=== PATIENT | female | born 1970 | race Caucasian/White ===

== ENCOUNTER 2025-06-26 12:42 | Inpatient (IN) ==
--- NOTE | 2025-06-26 13:39 | Emergency Department Note ---
Impression & Plan Complicated UTI (urinary tract infection), Flank Pain, Calculus of kidney, Hydronephrosis with urinary obstruction due to ureteral calculus ED Provider Note CHIEF COMPLAINT: Right flank pain, UTI HISTORY OF PRESENTING ILLNESS: Patient is a 54-year-old female presents to the emergency department today for complaints of right flank pain that radiates around to her groin and a known UTI. She has been being treated for UTI since Tuesday but this morning was called and had her antibiotic changed due to culture report that was completed. She was seen at [facility] for this. Today she is reporting fevers and chills with a fever of 102.4 F. She reports worsening right-sided flank pain. She does have a significant history of renal calculi with complications and sepsis. She does report some associated nausea, headache, lightheadedness. She denies any urinary retention or other significant urinary symptoms. Patient denies chest pain, sob, breathing difficulties, recent falls or trauma, vomiting, among others. REVIEW OF SYSTEMS: See HPI for pertinent positives and pertinent negatives. ALLERGIES: See below MEDICATIONS: See below PAST MEDICAL HISTORY: See below PHYSICAL EXAM: VITALS: Vitals are noted on the nurse's note and reviewed by myself. GENERAL: Non toxic, in no acute distress, non-diaphoretic. SKIN: Capillary refill <2 sec. HEART: Regular rate and rhythm without murmurs gallops or rubs. LUNGS: Clear to auscultation bilaterally without wheezes, rales or rhonchi. No retractions or accessory muscle use. ABDOMEN: Positive bowel sounds x 4. Normal tympanic percussion. Soft, tender to palpation in all 4 quadrants but worse in the right upper quadrant. No masses or hepatosplenomegaly. House sign negative. No CVA tenderness. No guarding, rigidity, or rebound tenderness. No focal RLQ or LLQ tenderness. MUSCULOSKELETAL: No gross musculoskeletal defects. NEURO: Patient was alert and oriented. No focal neurological deficits. DIFFERENTIAL DIAGNOSIS: Differential diagnosis includes UTI, bladder cancer, chlamydial genitourinary infection, cystitis, herpes simplex, interstitial cystitis, PID, pyelonephritis, urethritis, vaginitis, among others. ED COURSE AND MEDICAL DECISION MAKING: HISTORY FROM INDEPENDENT HISTORIAN: History was provided by the patient and her mother and father who are secondary historians and at the bedside. MONITOR: Continuous cardiac sonographer: Order was placed for continuous cardiac sonographer. Patient was placed on the cardiac sonographer and continuous pulse ox. Patient was noted to be in normal sinus rhythm at an initial rate of [] bpm per my interpretation. INTERPRETATION OF LABS: I interpreted the labs with full lab results as below in the lab section of this note. Laboratory results pertinent to the emergent complaint are discussed in the MDM section below. The patient was advised to follow up with their PCP and/or specialist(s) for further outpatient monitoring and management of any abnormal results. INTERPRETATION OF IMAGING: Imaging studies were interpreted by myself and read by radiology as per the imaging section of this note. The patient was advised to follow up with their PCP and/or specialist(s) for further outpatient management of any non-emergent abnormal findings. CHRONIC MEDICAL/SOCIAL CONDITIONS AFFECTING CARE: No social concerns were identified as barriers to patients care. ESCALATION OF CARE CONSIDERED: I considered admission on this patient due to elevated white blood cell count, UTI, obstructing ureteral stone CONSULTATIONS: I spoke with Hazel Avina for admission and the patient was accepted. I also spoke and consulted with Dr. Atkinson from urology who will plan to take the patient for stent tomorrow morning. He recommends the patient n.p.o. at midnight. SUMMARY: I examined the patient for complaints of right flank pain and a UTI. A physical exam and history were performed. Nursing notes, EMR, and medication list were personally reviewed. CBC showed leukocytosis with white blood cell count of 13.93. No anemia or thrombocytopenia.. CMP showed no emergent findings but a creatinine of 1.64. Troponin was 7.1. Urinalysis showed positive ketones, blood, nitrates, leukocytes, white blood cell count, red blood cell, hyaline cast, epithelial cells, bacteria. CT of the abdomen and pelvis showed an obstructing 5 mm distal right ureteral calculus resulting in moderate hydroureteronephrosis. The patient was given Toradol 30 mg and Zofran 4 mg IV with improvement in pain and nausea. The patient was also given 1 L of normal saline as well as Rocephin 1 g IV. She was then given 1 g of Tylenol with improvement in pain and discomfort. I spoke with Hazel Avina who accepted the patient for admission to the hospital. I also talked to Dr. Atkinson from urology will plan to take the patient in for stent tomorrow morning and recommends n.p.o. at midnight. Care was transferred at this time. DIAGNOSIS: UTI, obstructing right ureteral calculus, hydronephrosis TREATMENT PLAN/DISCHARGE INSTRUCTIONS: Admit to hospitalist services The chart was completed utilizing [employer] Speech voice recognition software.Grammatical errors, random word insertions, pronoun errors, and incomplete sentences are an occasional consequence of this system due to software limitations, ambient noise, and hardware issues.Any formal questions or concerns about the content, text, or information contained within the body of this dictation should be directly addressed to the physician for clarification. Past Med/Surg History Problem List Hydronephrosis with urinary obstruction due to ureteral calculus (Acute) Calculus of kidney (Acute) Flank Pain (Acute) Obstructive nephropathy Complicated UTI (urinary tract infection) (Acute) Sepsis Social History Smoking Status: Never smoker Hx Alcohol Use: Yes Alcohol type: wine and hard liquor Hx Substance Use: No Preferred Language: [place] Communication Ability: Effective Cardiac Catheterization Technician Required: No Beliefs That Will Affect Care: None Current Living Situation: Spouse Other Information That Helps Us Care for You: No Feels Safe at Home: Yes Safety Concerns: Feels Safe At This Time Assistive Devices: Glasses Allergies Allergies Allergy/AdvReac Type Severity Reaction Status Date / Time ciprofloxacin Allergy Intermediate Hives Verified 06/26/25 16:58 sulfamethoxazole Allergy Intermediate Hives Verified 06/26/25 16:58 [From Bactrim] trimethoprim [From Bactrim] Allergy Intermediate Hives Verified 06/26/25 16:58 Home Meds Home Medications Medication Instructions Recorded Confirmed buspirone 7.5 mg tablet 7.5 mg PO BID 06/26/25 06/26/25 cefpodoxime 200 mg tablet 200 mg PO BID 06/26/25 06/26/25 cholecalciferol (vitamin D3) 125 250 mcg PO DAILY 06/26/25 06/26/25 mcg (5,000 unit) tablet (Vitamin D3) metformin 1,000 mg tablet 1,000 mg PO BID 06/26/25 06/26/25 ondansetron 4 mg disintegrating 4 mg PO TID PRN NAUSEA/VOMITING 06/26/25 06/26/25 tablet rosuvastatin 5 mg tablet 5 mg PO DAILY 06/26/25 06/26/25 semaglutide 0.25 mg or 0.5 mg (2 0.5 mg subcut WK 06/26/25 06/26/25 mg/3 mL) subcutaneous pen injector (Ozempic) sertraline 100 mg tablet 100 mg PO DAILY 06/26/25 06/26/25 sertraline 50 mg tablet 50 mg PO DAILY 06/26/25 06/26/25 tamsulosin 0.4 mg capsule (Flomax) 0.4 mg PO DAILY 06/26/25 06/26/25 valsartan 160 mg tablet 160 mg PO DAILY 06/26/25 06/26/25 Results & Data (ED) Vital Signs Vital Signs - 24 hr 06/26/25 13:04 06/26/25 14:35 06/26/25 14:43 Temperature 36.3 C L Temperature Source Temporal Artery Scan Pulse Rate 113 H 104 H Pulse Rate [Apical] 96 H Pulse Rhythm [Apical] Regular Pulse Strength [Apical] Respiratory Rate 16 18 Respiratory Effort / Characteristics Respiratory Depth Normal Respiratory Pattern Blood Pressure 112/67 Blood Pressure [Left Arm] 123/75 Blood Pressure Mean 82 Blood Pressure Mean [Left Arm] 91 Blood Pressure Position [Left Arm] Pulse Oximetry 99 98 Oxygen Delivery Method Room Air Room Air Sepsis Recent Fever Within 48 Hours No Sepsis New/Unexplained Change in Mental Status N/A Sepsis Action Taken by Nursing No Action Required 06/26/25 16:00 Temperature Temperature Source Pulse Rate Pulse Rate [Apical] 94 H Pulse Rhythm [Apical] Regular Pulse Strength [Apical] Normal Respiratory Rate 20 Respiratory Effort / Characteristics Spontaneous Respiratory Depth Normal Respiratory Pattern Regular Blood Pressure Blood Pressure [Left Arm] 147/70 H Blood Pressure Mean Blood Pressure Mean [Left Arm] 95 Blood Pressure Position [Left Arm] Sitting Pulse Oximetry 96 Oxygen Delivery Method Sepsis Recent Fever Within 48 Hours Sepsis New/Unexplained Change in Mental Status Sepsis Action Taken by Nursing Laboratory Data 06/26/25 13:54 06/26/25 19:01 Lab Results 06/26/25 06/26/25 Range/Units 07:53 13:54 WBC 13.93 H (4.8-10.8) K/ul RBC 4.52 (4.20-5.40) M/uL Hgb 12.5 (12.0-16.0) g/dl Hct 38.2 (37.0-47.0) % MCV 84.5 (80.0-100.0) fL MCH 27.7 (25.0-34.0) pg MCHC 32.7 (32.0-36.0) g/dL RDW Std Deviation 40.0 (36.4-46.3) fL RDW Coeff of Lisa 13.0 (11.5-14.5) % Plt Count 191 (130-400) K/uL MPV 10.4 (9.4-12.4) fL Immature Gran % (Auto) 0.4 % Neut % (Auto) 85.5 % Lymph % (Auto) 8.5 % Teller % (Auto) 5.0 % Eos % (Auto) 0.4 % Baso % (Auto) 0.2 % Neut # (Auto) 11.90 H (1.40-6.50) K/uL Lymph # (Auto) 1.19 L (1.20-3.40) K/uL Teller # (Auto) 0.70 H (0.11-0.59) K/uL Eos # (Auto) 0.05 (0.00-0.50) K/uL Baso # (Auto) 0.03 (0.00-0.20) K/uL Immature Gran # (Auto) 0.06 (0.01-0.20) K/uL Sodium 134 L (136-145) mmol/L Potassium TNP Chloride 100 (98-107) mmol/L Carbon Dioxide 24 (21-32) mmol/L Anion Gap 10 (3-11) BUN 22 (6-23) mg/dl Creatinine 1.64 H (0.6-1.2) mg/dl Est Cr Clr Drug Dosing 31.8 ml/min eGFR 36.75 BUN/Creatinine Ratio 13.4 (10-20) Glucose 117 H (70-99(Fasting)) mg/dl Lactate 1.3 (0.4-2.0) mmol/L Calcium 9.8 (8.6-10.3) mg/dl Total Bilirubin 0.8 (0.2-1.0) mg/dl AST TNP ALT 8 (7-52) U/L Alkaline Phosphatase 67 (34-104) U/L Troponin I High Sens 7.1 (0-14) pg/ml Total Protein 7.9 (6.0-8.3) gm/dl Albumin 4.3 (3.4-5.0) gm/dl Globulin 3.6 (2.5-4.0) gm/dl Albumin/Globulin Ratio 1.2 (0.9-2) Procalcitonin Cancelled Administered Medications Buspirone HCl (Buspirone 7.5 Mg Tab) 7.5 mg PO BID [facility] Stop: 07/26/25 20:59 Last Admin: 06/26/25 20:33 Dose: 7.5 mg Documented By: jr Sodium Chloride (Nss) 1,000 mls @ 125 mls/hr IV .Q8H SOFIA Stop: 06/27/25 02:59 Last Admin: 06/26/25 19:21 Dose: 125 mls/hr Documented By: RT Cefepime HCl (Maxipime 2000mg) 2,000 mg in 20 mls @ 5 mls/min IV Q12H SOFIA; Protocol Stop: 07/06/25 19:29 Last Admin: 06/26/25 20:33 Dose: 5 mls/min Documented By: [email or web address] Insulin Aspart (Insulin Aspart Per Unit Charge) 0 units SC ACHS SOFIA Stop: 06/26/25 23:59 Last Admin: 06/26/25 20:40 Dose: Not Given Documented By: [email or web address] Morphine Sulfate (Morphine Sulfate 2 Mg/Ml Carp) 4 mg IV Q4H PRN PRN Reason: Mod-Sev Pain (Scale 4-10) Stop: 07/10/25 18:20 Last Admin: 06/26/25 20:41 Dose: 4 mg Documented By: jr Discontinued Medications Ceftriaxone Sodium (Rocephin) 1,000 mg in 50 mls @ 100 mls/hr IV NOW STA; Protocol Stop: 06/26/25 13:52 Last Infusion: 06/26/25 17:37 Dose: Infused Documented By: Admin: 06/26/25 15:20 Dose: 100 mls/hr Documented By: Sodium Chloride (Nss) 1,000 mls @ 999 mls/hr IV .Q1H1M ONE Stop: 06/26/25 14:26 Last Infusion: 06/26/25 17:37 Dose: Infused Documented By: Admin: 06/26/25 14:20 Dose: 999 mls/hr Documented By: MR Acetaminophen (Ofirmev) 1,000 mg in 100 mls @ 400 mls/hr IV NOW STA Stop: 06/26/25 17:23 Last Infusion: 06/26/25 17:57 Dose: Infused Documented By: Admin: 06/26/25 17:30 Dose: 400 mls/hr Documented By: NIECY Sodium Chloride (Nss) 1,000 mls @ 125 mls/hr IV .Q8H SOFIA Stop: 06/27/25 01:29 Last Infusion: 06/26/25 19:20 Dose: Infused Documented By: Admin: 06/26/25 17:33 Dose: 125 mls/hr Documented By: NIECY Cefepime HCl (Maxipime 2000mg) 2,000 mg in 20 mls @ 5 mls/min IV Q12H SOFIA; Protocol Stop: 07/06/25 18:14 Last Admin: 06/26/25 19:21 Dose: Not Given Documented By: RT Ioversol (Optiray 320 100ml) 90 ml IV ONCE ONE Stop: 06/26/25 15:16 Last Admin: 06/26/25 15:15 Dose: 90 ml Documented By: NEREIDA Ketorolac Tromethamine (Ketorolac 30 Mg/Ml Vial) 30 mg IV NOW STA Stop: 06/26/25 13:26 Last Admin: 06/26/25 14:23 Dose: 30 mg Documented By: MR Ondansetron HCl (Ondansetron Inj 2 Mg/Ml 2 Ml Vial) 4 mg IV NOW STA Stop: 06/26/25 13:26 Last Admin: 06/26/25 14:20 Dose: 4 mg Documented By: MR Imaging Data Radiologist's Impression: Abdomen/Pelvis CT 06/26/25 13:[address] WITH IV CONTRAST CT DOSE: 790.76 mGy.cm HISTORY: Acute right-sided flank pain with renal colic right flank/groin pain, hx renal calc TECHNIQUE: Multiaxial CT images of the abdomen and pelvis were performed following the IV administration of 90 cc of Optiray, A dose lowering technique was utilized adhering to the principles of ALARA. COMPARISON STUDY: None. FINDINGS: Partially imaged 3 cm asymmetry of the upper outer quadrant right breast on image 1 series 3 with soft tissue density. Trace pleural effusions with mild dependent subsegmental bibasilar atelectasis. No pneumatosis or pneumoperitoneum. Spleen is upper limits of normal in size, 12 cm. Unremarkable spleen and adrenal glands. Cholecystectomy. Unremarkable liver. Patency of the hepatic and portal veins. 8 mm nonobstructing calculus of the inferior pole left kidney. Nonobstructing calculi at the inferior pole right kidney measure up to 4 mm. Small right renal cyst. Delayed right-sided nephrogram with moderate hydroureteronephrosis and mild urothelial thickening secondary to an obstructing 5 x 4 x 5 mm calculus of the distal right ureter approximately 2 cm upstream to the UVJ. Bladder wall thickening with partial distention. Atherosclerosis of the aorta without aneurysm. No lymphadenopathy. Small duodenal diverticulum. No bowel obstruction or bowel wall thickening. Unremarkable soft tissues. There is no acute fracture identified. IMPRESSION: 1. Obstructing 5 mm distal right ureteral calculus results in moderate hydroureteronephrosis with delayed nephrogram. 2. Mild urothelial thickening of the right ureter is likely reactive. Correlate with urinalysis to exclude infection. 3. Nonobstructing bilateral nephrolithiasis. 4. Cholecystectomy. ACT 112: Negative or not required by law. The above report was generated using voice recognition software. It may contain grammatical, syntax or spelling errors. Electronically signed by: Dave Gonzalez M.D. 06/26/2025 3:54 PM Discharge Plan Visit Data Chief Complaint: Flank Pain Stated Complaint: R SIDE FLANK PAIN, HX KIDNEY STONES, NAUSEA, UTI ED Provider: Cesar Holguin ED Midlevel Provider: Jenn Nice Discharge Problem: Complicated UTI (urinary tract infection), Flank Pain, Calculus of kidney, Hydronephrosis with urinary obstruction due to ureteral calculus Patient Disposition: Admitted As Inpatient Condition: Good Discharge Instructions Interventions: ED Discharge Assessment Last Done: 06/26/25 17:59 Discharge Problem: Flank Pain Qualifiers: Laterality: right Qualified Code(s): R10.A1 - Flank pain, right side
[2025-06-26 14:16] LABS: Appearance Urine Cloudy (Clear); Bacteria Urine Automated 4+ (None Seen); Glucose Urine UA Negative (Negative); WBC Urine Automated 21-50 /hpf (0-5)
[2025-06-26 14:20] LABS: Hematocrit (blood only) 38.2 % (37.0-47.0); Hemoglobin 12.5 g/dl (12.0-16.0); Immature Granulocytes # (auto) 0.06 K/uL (0.01-0.20); Immature Granulocytes % (auto) 0.4 %; Mean Corpuscular Hemoglobin 27.7 pg (25.0-34.0); Mean Corpuscular Volume 84.5 fL (80.0-100.0); Platelet Count 191 K/uL (130-400); RDW Standard Deviation 40.0 fL (36.4-46.3); Red Blood Count 4.52 M/uL (4.20-5.40); White Blood Count 13.93 K/ul (4.8-10.8)
[2025-06-26] MEDS: ONDANSETRON INJ 2 MG/ML 2 ML VIAL IV STA (14:20)
[2025-06-26] MEDS: SODIUM CHLORIDE 0.9% 1,000 ML IV ONE (14:20)
[2025-06-26] MEDS: KETOROLAC 30 MG/ML VIAL IV STA (14:23)
[2025-06-26 14:45] LABS: Alanine Aminotransferase 8 U/L (7-52); Albumin Globulin Ratio 1.2 (0.9-2); Albumin Level 4.3 gm/dl (3.4-5.0); Alkaline Phosphatase 67 U/L (34-104); Anion Gap 10 (3-11); Bilirubin,Total 0.8 mg/dl (0.2-1.0); Blood Urea Nitrogen 22 mg/dl (6-23); Calcium 9.8 mg/dl (8.6-10.3); Carbon Dioxide 24 mmol/L (21-32); Chloride 100 mmol/L (98-107); Creatinine Clr Calc Pharmacy 31.8 ml/min; Globulin 3.6 gm/dl (2.5-4.0); Glucose 117 mg/dl (70-99(Fasting)); Sodium 134 mmol/L (136-145); Total Protein 7.9 gm/dl (6.0-8.3)
[2025-06-26] MEDS: OPTIRAY 320 100ml IV ONE (15:15)
[2025-06-26] MEDS: cefTRIAXone SODIUM 1,000 MG/50 ML BAG IV STA (15:20)
--- NOTE | 2025-06-26 15:55 | CT Scan Report ---
ABDOMEN AND PELVIS CT WITH IV CONTRAST CT DOSE: 790.76 mGy.cm HISTORY: Acute right-sided flank pain with renal colic right flank/groin pain, hx renal calc TECHNIQUE: Multiaxial CT images of the abdomen and pelvis were performed following the IV administrat ion of 90 cc of Optiray, A dose lowering technique was utilized adhering to the principles of ALARA. COMPARISON STUDY: None. FINDINGS: Partially imaged 3 cm asymmetry of the upper outer quadrant right breast on image 1 series 3 with soft tissue density. Trace pleural effusions with mild dependent subsegmental bibasilar atelec tasis. No pneumatosis or pneumoperitoneum. Spleen is upper limits of normal in size, 12 cm. Unremarka ble spleen and adrenal glands. Cholecystectomy. Unremarkable liver. Patency of the hepatic and portal veins. 8 mm nonobstructing calculus of the inferior pole left kidney. Nonobstructing calculi at the inferior pole right kidney measure up to 4 mm. Small right renal cyst. Delayed right-sided nephrogram with mo derate hydroureteronephrosis and mild urothelial thickening secondary to an obstructing 5 x 4 x 5 mm calculus of the distal right ureter approximately 2 cm upstream to the UVJ. Bladder wall thickening w ith partial distention. Atherosclerosis of the aorta without aneurysm. No lymphadenopathy. Small duodenal diverticulum. No bowel obstruction or bowel wall thickening. Unremarkable soft tissues . There is no acute fracture identified. IMPRESSION: 1. Obstructing 5 mm distal right ureteral calculus results in moderate hydroureteronephrosis with del ayed nephrogram. 2. Mild urothelial thickening of the right ureter is likely reactive. Correlate with urinalysis to ex clude infection. 3. Nonobstructing bilateral nephrolithiasis. 4. Cholecystectomy. ACT 112: Negative or not required by law. The above report was generated using voice recognition software. It may contain grammatical, syntax o r spelling errors. Electronically signed by: Dave Gonzalez M.D. 06/26/2025 3:54 PM
--- NOTE | 2025-06-26 17:12 | History & Physical Report ---
Date of Service June 26, 2025 Assessment & Plan (1) Sepsis: (2) Complicated UTI (urinary tract infection): (3) Obstructive nephropathy: Plan Patient is a 54-year-old female with past medical history significant for DMII, history of kidney stones, HLD, HTN and anxiety/depression who presented to the ED with complaints of R-sided flank pain, fevers and nausea. Found to be septic 2/2 complicated UTI ISO obstructing R distal ureteral calculus with moderate hydroureteronephrosis. CTAP: Delayed right-sided nephrogram with moderate hydroureteronephrosis and mild urothelial thickening secondary to an obstructing 5 x 4 x 5 mm calculus of the distal right ureter approximately 2 cm upstream to the UVJ. Bladder wall thickening with partial distention. #Sepsis 2/2 complicated UTI ISO obstructing right distal ureteral calculus with moderate hydroureteronephrosis #Obstructive nephropathy Meets sepsis criteria on admission given tachycardia, leukocytosis, source of infection S/p 1L NSS, IV Rocephin in ED -Was hypertensive, was going to hold off on additional IVF initially -Hypertension however resolved so going to give an additional 1L NSS for now, monitor response Was diagnosed with UTI on Tuesday -Urine culture completed by PCP and came back today -Was initially on Macrobid, then switched to cefpodoxime today as urine culture results showed resistance to Macrobid (did not start cefpodoxime) -Unclear what bacterium the urine culture is growing -HIM consult placed to obtain urine culture result/sensitivities (completed by PCP through [facility]) Will cover with IV cefepime for now given unclear urine culture result Check lactate, procalcitonin Blood and urine cultures pending Continue Flomax (previously prescribed by PCP on Tuesday) Scheduled Tylenol, PRN IV analgesia Appreciate urology consult -ED provider discussed case with Dr. Atkinson -Plan for OR in a.m. for stent placement -Keep NPO at [place] in preparation for this procedure Cr 1.64 on admission No prior history of kidney disease per pt -Suspect to see improvement once stone obstruction resolved -Continue to monitor and avoid nephrotoxic agents as able #DM type II Hold home metformin, Ozempic SSI regimen while inpatient, BSG checks ACHS CC/HH diet; check hemoglobin A1c in a.m. #Incidental CTAP finding: atherosclerosis of the aorta without aneurysm Recommend further follow-up as an outpatient with PCP, continue current statin therapy Need to consider increasing rosuvastatin dosing to high-dose therapy; will check a.m. lipid panel for further evaluation #Incidental CTAP finding: partially imaged 3cm asymmetry of the upper outer quadrant R breast with soft tissue density Discussed with pt; strong family history of breast CA including her paternal aunt, sister Need to coordinate with PCP in order to have US and/or mammogram completed MITZI #Anxiety/depression Continue Zoloft, BuSpar #HTN Hold valsartan for now as repeat BP improving, resume as able DVT Prophylaxis: SCDs/TEDs only for now in anticipation for urological intervention in a.m. Code Status: FULL CODE PCP: Odilon Jensen DO [[facility]] Disposition: Admit to PCU Patient seen in collaboration with Dr. Calzada. Please see addendum. I spent a total of 68 minutes coordinating, documenting, and providing care for this patient excluding time spent in the performance of separately billed services or time spent by another provider/QHP. This included personally reviewing all current laboratories and imaging studies, medical reconciliation, outpatient chart review and discussion with specialists. This chart was completed in part utilizing Speech Voice Recognition Software. Grammatical errors, random word insertions, pronoun errors, and incomplete sentences are an occasional consequence of this system due to software limitations, ambient noise, and hardware issues. Any formal questions or concerns about the content, text, or information contained within the body of this dictation should be directly addressed to the provider for clarification. History of Present Illness Chief Complaint: R flank pain, fever, nausea Recently diagnosed with UTI this past Tuesday Primary Care Provider: Odilon Jensen DO Patient is a 54-year-old female with past medical history significant for DMII, history of kidney stones, HLD, HTN and anxiety/depression who presented to the ED with complaints of R-sided flank pain, fevers and nausea. History obtained from the patient, patient's family members at bedside (aunt and uncle), discussion with ED provider and associated chart review. Started with R-sided flank pain on Tuesday. Diagnosed with UTI on Tuesday. Was started on Macrobid. Was called by PCP earlier today and told that her urine culture was growing a bacteria with resistant to Macrobid. Unclear bacterium. Was switched to cefpodoxime. This was sent to her pharmacy but not picked up. Instead she decided to come into the ED as she continued to have significant R flank pain as well as nausea and fevers. Last recorded fever was yesterday and was 102.9F. Had chills associated with this. Appetite fairly poor ISO nausea. Has been taking in some fluids. No reported bouts of vomiting. No smoking history. Rare alcohol use. No recreational drug use. Significant history of kidney stones. Previously requiring stent placement. Last kidney stone was about a year and a half ago. Allergies Allergy/AdvReac Type Severity Reaction Status Date / Time ciprofloxacin Allergy Intermediate Hives Verified 06/26/25 16:58 sulfamethoxazole Allergy Intermediate Hives Verified 06/26/25 16:58 [From Bactrim] trimethoprim [From Bactrim] Allergy Intermediate Hives Verified 06/26/25 16:58 Home Medications Medication Instructions Recorded Confirmed Type buspirone 7.5 mg tablet 7.5 mg PO BID 06/26/25 06/26/25 History cefpodoxime 200 mg tablet 200 mg PO BID 06/26/25 06/26/25 History cholecalciferol (vitamin D3) 125 250 mcg PO DAILY 06/26/25 06/26/25 History mcg (5,000 unit) tablet (Vitamin D3) metformin 1,000 mg tablet 1,000 mg PO BID 06/26/25 06/26/25 History ondansetron 4 mg disintegrating 4 mg PO TID PRN NAUSEA/VOMITING 06/26/25 06/26/25 History tablet rosuvastatin 5 mg tablet 5 mg PO DAILY 06/26/25 06/26/25 History semaglutide 0.25 mg or 0.5 mg (2 0.5 mg subcut WK 06/26/25 06/26/25 History mg/3 mL) subcutaneous pen injector (Ozempic) sertraline 100 mg tablet 100 mg PO DAILY 06/26/25 06/26/25 History sertraline 50 mg tablet 50 mg PO DAILY 06/26/25 06/26/25 History tamsulosin 0.4 mg capsule (Flomax) 0.4 mg PO DAILY 06/26/25 06/26/25 History valsartan 160 mg tablet 160 mg PO DAILY 06/26/25 06/26/25 History Past Med/Surg History Problem List Hydronephrosis with urinary obstruction due to ureteral calculus (Acute) Calculus of kidney (Acute) Flank Pain (Acute) Obstructive nephropathy Complicated UTI (urinary tract infection) (Acute) Sepsis Social History Smoking Status: Never smoker Preferred Language: Welsh Feels Safe at Home: Yes Review of Systems Review of Systems: At least ten systems reviewed and negative, except as noted in the HPI. Physical Exam Physical Exam: General: WD/WN, NAD, laying down in bed, A&Ox3, pleasant, family at bedside HEENT: Normocephalic, atraumatic, oropharynx normal Respiratory: Normal respiratory effort, CTAB Cardiovascular: Tachycardic rate (HR 107), regular rhythm, normal peripheral pulses, no BLE edema Abdomen/GI: Active bowel sounds, soft, + R flank pain otherwise nontender to palpation in all quadrants Extremities/Musculoskeletal: No cyanosis or clubbing, extremities motor strength intact, moves all extremities Neurologic: No overt focal deficits, CN's II-XI not formally tested but appear grossly intact bilaterally Results & Data Results & Data Vital Signs (Past 12 Hours) Vital Signs Temp Pulse Pulse Resp BP BP Pulse Ox 06/26/25 16:00 94 H 20 147/70 H 96 06/26/25 14:43 96 H 18 123/75 98 06/26/25 14:35 104 H 06/26/25 13:04 36.3 C L 113 H 16 112/67 99 O2 Del Method 06/26/25 16:00 06/26/25 14:43 Room Air 06/26/25 14:35 06/26/25 13:04 Room Air Laboratory Results Short CBC 06/26/25 Range/Units 13:54 WBC 13.93 H (4.8-10.8) K/ul Hgb 12.5 (12.0-16.0) g/dl Hct 38.2 (37.0-47.0) % Plt Count 191 (130-400) K/uL BMP 06/26/25 13:54 Sodium 134 L Potassium TNP Chloride 100 Carbon Dioxide 24 BUN 22 Creatinine 1.64 H Glucose 117 H Calcium 9.8 Liver Function 06/26/25 Range/Units 13:54 Total Bilirubin 0.8 (0.2-1.0) mg/dl AST TNP ALT 8 (7-52) U/L Alkaline Phosphatase 67 (34-104) U/L Albumin 4.3 (3.4-5.0) gm/dl Urine 06/26/25 Range/Units Unknown Urine Color Yellow Urine Appearance Cloudy A (Clear) Urine pH 5.5 (4.5-7.5) Ur Specific [place] 1.014 (1.000-1.030) Urine Protein 1+ H (Negative) Urine Glucose (UA) Negative (Negative) Diagnostic Findings Abdomen/Pelvis CT 06/26/25 13:[address] WITH IV CONTRAST CT DOSE: 790.76 mGy.cm HISTORY: Acute right-sided flank pain with renal colic right flank/groin pain, hx renal calc TECHNIQUE: Multiaxial CT images of the abdomen and pelvis were performed following the IV administration of 90 cc of Optiray, A dose lowering technique was utilized adhering to the principles of ALARA. COMPARISON STUDY: None. FINDINGS: Partially imaged 3 cm asymmetry of the upper outer quadrant right breast on image 1 series 3 with soft tissue density. Trace pleural effusions with mild dependent subsegmental bibasilar atelectasis. No pneumatosis or pneumoperitoneum. Spleen is upper limits of normal in size, 12 cm. Unremarkable spleen and adrenal glands. Cholecystectomy. Unremarkable liver. Patency of the hepatic and portal veins. 8 mm nonobstructing calculus of the inferior pole left kidney. Nonobstructing calculi at the inferior pole right kidney measure up to 4 mm. Small right renal cyst. Delayed right-sided nephrogram with moderate hydroureteronephrosis and mild urothelial thickening secondary to an obstructing 5 x 4 x 5 mm calculus of the distal right ureter approximately 2 cm upstream to the UVJ. Bladder wall thickening with partial distention. Atherosclerosis of the aorta without aneurysm. No lymphadenopathy. Small duodenal diverticulum. No bowel obstruction or bowel wall thickening. Unremarkable soft tissues. There is no acute fracture identified. IMPRESSION: 1. Obstructing 5 mm distal right ureteral calculus results in moderate hydroureteronephrosis with delayed nephrogram. 2. Mild urothelial thickening of the right ureter is likely reactive. Correlate with urinalysis to exclude infection. 3. Nonobstructing bilateral nephrolithiasis. 4. Cholecystectomy. ACT 112: Negative or not required by law. The above report was generated using voice recognition software. It may contain grammatical, syntax or spelling errors. Electronically signed by: Dave Gonzalez M.D. 06/26/2025 3:54 PM Medications Administered Discontinued Medications Ceftriaxone Sodium (Rocephin) 1,000 mg in 50 mls @ 100 mls/hr IV NOW STA; Protocol Stop: 06/26/25 13:52 Last Infusion: 06/26/25 17:37 Dose: Infused Documented By: Admin: 06/26/25 15:20 Dose: 100 mls/hr Documented By: Sodium Chloride (Nss) 1,000 mls @ 999 mls/hr IV .Q1H1M ONE Stop: 06/26/25 14:26 Last Infusion: 06/26/25 17:37 Dose: Infused Documented By: Admin: 06/26/25 14:20 Dose: 999 mls/hr Documented By: Acetaminophen (Ofirmev) 1,000 mg in 100 mls @ 400 mls/hr IV NOW STA Stop: 06/26/25 17:23 Last Infusion: 06/26/25 17:57 Dose: Infused Documented By: Admin: 06/26/25 17:30 Dose: 400 mls/hr Documented By: NIECY Sodium Chloride (Nss) 1,000 mls @ 125 mls/hr IV .Q8H SOFIA Stop: 06/27/25 01:29 Last Admin: 06/26/25 17:33 Dose: 125 mls/hr Documented By: NIECY Ioversol (Optiray 320 100ml) 90 ml IV ONCE ONE Stop: 06/26/25 15:16 Last Admin: 06/26/25 15:15 Dose: 90 ml Documented By: NEREIDA Ketorolac Tromethamine (Ketorolac 30 Mg/Ml Vial) 30 mg IV NOW STA Stop: 06/26/25 13:26 Last Admin: 06/26/25 14:23 Dose: 30 mg Documented By: Ondansetron HCl (Ondansetron Inj 2 Mg/Ml 2 Ml Vial) 4 mg IV NOW STA Stop: 06/26/25 13:26 Last Admin: 06/26/25 14:20 Dose: 4 mg Documented By: (1) Sepsis Sepsis acute organ dysfunction status: unspecified Sepsis type: sepsis due to unspecified organism Qualified Code(s): A41.9 - Sepsis, unspecified organism
[2025-06-26] MEDS: ACETAMINOPHEN 1,000 MG/100 ML VIAL IV STA (17:30)
[2025-06-26] MEDS: SODIUM CHLORIDE 0.9% 1,000 ML IV SCH ×2 (17:33→19:21)
--- NOTE | 2025-06-26 17:34 | Communication Note ---
Date of Service: June 26, 2025 Attending Addendum: Case reviewed with the advanced practitioner. I have personally performed a history and physical examination on the patient. I have reviewed the advanced practitioner's documentation on the date of service referenced in note, and I agree with, and take responsibility for the plan of care. please refer to her notes for full details patient seen and examined, records reviewed by myself as well on exam, patient seen resting in bed, not in distress having chills, temp 37.2 states she feels ok overall minimal pain over the left flank area no hematuria no nausea/vomiting no chest pain, dyspnea, palpitations, dizziness no other symptoms VS noted and reviewed oriented x3, not in distress, speaks in sentences with no effort nor accessory muscle use normal rate, regular rhythm, no murmurs clear breath sounds bilaterally non distended, soft, (+) mild RLQ tenderness no bipedal edema, erythema, warmth no neuro deficits all labs, imaging noted and reviewed ASSESSMENT AND PLAN> SEPSIS SECONDARY TO URINARY TRACT INFECTION IN THE SETTING OF RIGHT URETERAL STONE WITH OBSTRUCTIVE UROPATHY check lactic acid ff up blood and urine culture from today also had urine culture from [facility] requested to obtain records Cefepime IV IV fluids pain control NPO post midnight Urology consulted, for stent placement tomorrow ABNORMAL CT FINDING Partially imaged 3 cm asymmetry of the upper outer quadrant right breast on image 1 series 3 with soft tissue density. Atherosclerosis of the aorta without aneurysm. will need close outpatient ff up due to family history of breast CA Further work up, management, and ff up as outpatient other chronic medical problems: DM 2 HTN other diagnoses and plan of care as per advanced practitioner's notes I spent a total of 45 minutes coordinating, documenting, and providing care for this patient, excluding time spent in the performance of separately billed services or time spent by another provider/QHP. Blue Calzada MD
[2025-06-26] MEDS ORDERED: ACETAMINOPHEN 325 MG TAB PO PRN (18:12)
[2025-06-26] MEDS ORDERED: CARBOHYDRATES FOR HYPOGLYCEMIA PO PRN (18:12)
[2025-06-26] MEDS ORDERED: MAGNESIUM HYDROXIDE SUSP 30 ML UDC PO PRN (18:12)
[2025-06-26] MEDS ORDERED: GLUCAGON FOR INJ 1 MG VIAL SQ PRN (18:12)
[2025-06-26] MEDS ORDERED: DEXTROSE 50% 50 ML SYRINGE IV PRN (18:12)
[2025-06-26] MEDS ORDERED: GLUCOSE 40% GEL 15 GM TUBE PO PRN (18:12)
[2025-06-26] MEDS ORDERED: GLUCOSE 10 TAB/TUBE PO PRN (18:12)
[2025-06-26] MEDS ORDERED: ONDANSETRON INJ 2 MG/ML 2 ML VIAL IV PRN (18:12)
[2025-06-26] MEDS ORDERED: PHARMACY GLYCEMIC MGMT CONSULT PRN (18:12)
[2025-06-26] MEDS ORDERED: POLYETHYLENE (MIRALAX) 17 GM PACK PO PRN (18:12)
[2025-06-26] MEDS ORDERED: HYDROmorphone INJ 1 MG/ML SYRINGE IV PRN (18:21)
[2025-06-26] MEDS ORDERED: MoRPHine SULFATE 2 MG/ML CARP IV PRN (18:21)
--- NOTE | 2025-06-26 18:39 | Pharmacy Report ---
Pharmacy Glycemic Short Note 2 - Date of Service June 26, 2025 - Glycemic Short BSG Results (Last 24 hours): 06/26/25 13:54 Glucose 117 H OUTPATIENT ANTIDIABETIC REGIMEN: * Metformin 1000g BID * Semaglutide 0.5mg SQ weekly * HbA1c pending draw 10/2 AM labs ASSESSMENT: * Patient is a 54 year old female with T2DM who presents with sepsis likely secondary to urinary source. * Glucose reading this afternoon was 117, controlled. * Patient will be NPO at midnight for stent placement tomorrow, but currently ordered T2DM diet. * Will initiate Novolog weight-based regimen with stress of 2 for now. ACHS checks until midnight, then Q6H starting 10/2 0000 for NPO. * Stressors: infection, surgical procedure tomorrow. PLAN FOR INPATIENT GLYCEMIC CONTROL: * Hold outpatient oral diabetes medications * Bolus insulin * NovoLog per scale ACHS or Q6hrs while NPO * Goal Range: Low 120 mg/dL - High 160 mg/dL * Correction Factor: 35 mg/dL/unit * Nutritional / Prandial insulin per carb ratio of 1 unit per 12 grams CHO consumed
--- NOTE | 2025-06-26 19:15 | Electrocardiogram Report ---
Test Reason : Blood Pressure : */* mmHG Vent. Rate : 104 BPM Atrial Rate : 104 BPM P-R Int : 140 ms QRS Dur : 74 ms QT Int : 320 ms P-R-T Axes : 40 45 31 degrees QTcB Int : 420 ms Sinus tachycardia Otherwise normal ECG No previous ECGs available Confirmed by Charly Winslow ([id number]) on 06/26/2025 7:15:00 PM Referred By: REFERRED SELF Confirmed By: Charly Winslow
[2025-06-26] MEDS: CEFEPIME 2000MG 2,000 MG/20 ML SYR IV SCH ×2 (19:21→20:33)
[2025-06-26 19:53] LABS: Potassium 4.0 mmol/L (3.5-5.1)
[2025-06-26] MEDS: INSULIN ASPART PER UNIT CHARGE SC SCH (20:40)
[2025-06-26] MEDS: MoRPHine SULFATE 2 MG/ML CARP IV PRN (20:41)
--- NOTE | 2025-06-26 23:12 | CT Scan Report ---
Exam(s): CT HEAD Without Contrast EXAM: CT Head Without Intravenous Contrast CLINICAL HISTORY: Reason for exam: elizalde. TECHNIQUE: Axial computed tomography images of the head/brain without intravenous contrast. CTDI is 38.37 mGy and DLP is 547.75 mGy-cm. Automated exposure control was utilized for the study. A dose lowering technique was utilized adhering to the principles of ALARA. Mild motion artifact. COMPARISON: None. FINDINGS: Brain: No mass effect or acute infarct. No acute hemorrhage. No definite abnormal density in the brain parenchyma, mildly limited by motion artifact. Ventricles: No hydrocephalus or midline shift. Bones/joints: No skull fracture. Soft tissues: No scalp hematoma. Visualized Sinuses: Clear. Mastoid air cells: No mastoid effusion. IMPRESSION: 1. No acute intracranial abnormality. Electronically signed by: Veronica Galeana M.D. 06/26/25 23:11 PM
[2025-06-27] MEDS: INSULIN ASPART PER UNIT CHARGE SC SCH ×2 (00:09→17:27)
[2025-06-27] MEDS: ACETAMINOPHEN 500 MG TAB PO SCH (00:12)
[2025-06-27] MEDS ORDERED: PIPERACILLIN/TAZOBACTAM 4.5 GM/100 ML BAG IV SCH (01:15)
[2025-06-27] MEDS: PIPERACILLIN/TAZOBACTAM 4.5 GM/100 ML BAG IV ONE (02:35)
[2025-06-27 06:12] LABS: Hematocrit (blood only) 31.0 % (37.0-47.0); Hemoglobin 10.3 g/dl (12.0-16.0); Immature Granulocytes # (auto) 0.06 K/uL (0.01-0.20); Immature Granulocytes % (auto) 0.6 %; Mean Corpuscular Hemoglobin 28.3 pg (25.0-34.0); Mean Corpuscular Volume 85.2 fL (80.0-100.0); Platelet Count 176 K/uL (130-400); RDW Standard Deviation 40.8 fL (36.4-46.3); Red Blood Count 3.64 M/uL (4.20-5.40); White Blood Count 10.88 K/ul (4.8-10.8)
[2025-06-27 06:31] LABS: Cholesterol 119.0 mg/dl (0-200); HDL Cholesterol 40.0 mg/dl; Triglycerides 98.0 mg/dl (0-150)
[2025-06-27 07:38] LABS: Anion Gap 8.0 (3-11); Blood Urea Nitrogen 23.0 mg/dl (6-23); Calcium 8.9 mg/dl (8.6-10.3); Carbon Dioxide 21.0 mmol/L (21-32); Chloride 109.0 mmol/L (98-107); Creatinine Clr Calc Pharmacy 30.7 ml/min; Glucose 103.0 mg/dl (70-99(Fasting)); Magnesium 1.5 mg/dl (1.7-2.4); Potassium 4.6 mmol/L (3.5-5.1); Sodium 138.0 mmol/L (136-145)
[2025-06-27] MEDS: MAGNESIUM SULFATE / D5W 1 GM/100 ML BAG IV ONE (08:01)
[2025-06-27] MEDS: SODIUM CHLORIDE 0.9% 1,000 ML IV SCH (08:03)
[2025-06-27] MEDS: TAMSULOSIN HCL 0.4 MG CAP PO SCH (08:06)
[2025-06-27] MEDS: SERTRALINE HCL 50 MG TABLET PO SCH (08:06)
[2025-06-27] MEDS: ROSUVASTATIN CALCIUM 5 MG TAB PO SCH (08:06)
[2025-06-27] MEDS: CHOLECALCIFEROL 125 MCG (5,000 UNITS) TAB PO SCH (08:06)
[2025-06-27] MEDS: SERTRALINE HCL 100 MG TABLET PO SCH (08:06)
--- NOTE | 2025-06-27 08:17 | Urology Consultation ---
Date of Consultation June 27, 2025 Assessment & Plan (1) Hydronephrosis with urinary obstruction due to ureteral calculus: (2) Complicated UTI (urinary tract infection): Plan We reviewed the stone seen in her distal ureter as well as her nonobstructing kidney stones. The ureteral stone is small enough that she may be able to pass it spontaneously, however in the setting of suspected urinary tract infection I would recommend cystoscopy, right retrograde pyelogram and right ureteral stent placement to allow maximal drainage of her urinary tract. We discussed risks of bleeding, infection, inability to place stent, need for additional procedures, injury to nearby structures. She expressed understanding and would like to proceed with cystoscopy, right retrograde pyelogram and right ureteral stent placement. Agree with broad-spectrum antibiotics, narrowing coverage as culture data becomes available. History of Present Illness Reason for Consultation: Right ureteral stone, urinary tract infection Attending Physician: Khurram Galvan MD History of Present Illness This is a 54-year-old female with history of nephrolithiasis who presented to the emergency department on 06/26/2025 with right-sided flank pain and low-grade fevers. Workup in the emergency department demonstrated mild leukocytosis (WBC 13.9). Creatinine was slightly elevated at 1.64. Urinalysis demonstrated positive nitrates and 4+ bacteria, although there were some epithelial cells present as well. She was given IV fluids and started on cefepime. She had a CT scan of the abdomen and pelvis performed. I independently reviewed these images from 06/26/2025. Both kidneys are in normal position. There is hydronephrosis and a slightly delayed nephrogram of the right side. There is a nonobstructing cluster of stones in the inferior portion of her right kidney as well as a nonobstructing stone in the left kidney. Hydroureter on the right extends down to a 5 mm stone in the distal ureter which appears to be causing obstruction. Bladder is grossly normal. Urology was consulted regarding obstructing stone and urinary tract infection. She reports a history of multiple stones in the past. She has required surgical intervention for some of the stones previously. She does not feel like she has passed the stone yet as she is still having some pain. Not currently having any fevers or chills, but not feeling back to her normal self. Allergies Allergy/AdvReac Type Severity Reaction Status Date / Time ciprofloxacin Allergy Intermediate Hives Verified 06/26/25 16:58 sulfamethoxazole Allergy Intermediate Hives Verified 06/26/25 16:58 [From Bactrim] trimethoprim [From Bactrim] Allergy Intermediate Hives Verified 06/26/25 16:58 Home Medications Medication Instructions Recorded Confirmed Type buspirone 7.5 mg tablet 7.5 mg PO BID 06/26/25 06/26/25 History cefpodoxime 200 mg tablet 200 mg PO BID 06/26/25 06/26/25 History cholecalciferol (vitamin D3) 125 250 mcg PO DAILY 06/26/25 06/26/25 History mcg (5,000 unit) tablet (Vitamin D3) metformin 1,000 mg tablet 1,000 mg PO BID 06/26/25 06/26/25 History ondansetron 4 mg disintegrating 4 mg PO TID PRN NAUSEA/VOMITING 06/26/25 06/26/25 History tablet rosuvastatin 5 mg tablet 5 mg PO DAILY 06/26/25 06/26/25 History semaglutide 0.25 mg or 0.5 mg (2 0.5 mg subcut WK 06/26/25 06/26/25 History mg/3 mL) subcutaneous pen injector (Ozempic) sertraline 100 mg tablet 100 mg PO DAILY 06/26/25 06/26/25 History sertraline 50 mg tablet 50 mg PO DAILY 06/26/25 06/26/25 History tamsulosin 0.4 mg capsule (Flomax) 0.4 mg PO DAILY 06/26/25 06/26/25 History valsartan 160 mg tablet 160 mg PO DAILY 06/26/25 06/26/25 History Patient History Social History Smoking Status: Never smoker Hx Alcohol Use: Yes Alcohol type: wine and hard liquor Hx Substance Use: No Preferred Language: [place] African Communication Ability: Effective Sales Merchandise Associate Required: No Beliefs That Will Affect Care: None Current Living Situation: Spouse Other Information That Helps Us Care for You: No Feels Safe at Home: Yes Safety Concerns: Feels Safe At This Time Assistive Devices: Glasses Review of Systems Review of Systems: 10 point review of systems negative exce pt for otherwise indicated. Physical Exam Constitutional: well developed and well nourished; no acute distress Eyes: + anicteric sclerae; pupils not irregula r Respiratory: normal respiratory effort; no respiratory distress, does not use accessory muscles and no cough Cardiovascular: well perfused Gastrointestinal (Abdomen): Inspection/Auscultation: abdomen normal to inspection; abdomen not distended Musculoskeletal: Extremities: extremities normal to inspection Skin: normal turgor; no rashes and no lesions Neurologic: moves all extremities and awake Psychiatric: Orientation: alert and oriented x 3 Results & Data Vital Signs (Past 12 Hours) Vital Signs Temp Pulse Pulse Pulse Resp BP Pulse Ox 06/27/25 08:03 36.6 C 87 18 116/69 99 06/27/25 02:27 36.7 C 77 20 99/66 L 96 06/26/25 22:30 89 06/26/25 22:29 36.6 C 89 18 126/70 95 O2 Del Method 06/27/25 08:03 Room Air 06/27/25 02:27 Room Air 06/26/25 22:30 06/26/25 22:29 Room Air PG Care Time/CCT Total # of Minutes Spent Total Time Spent with Patient: Total time spent is greater than 50% in coordination of care (as documented) at patient's floor/unit and/or counseling patient: Coding Level of Care Code 30566 OP VST NEW MOD 45 MIN Diagnoses Hydronephrosis with urinary obstruction due to ureteral calculus N13.2 Complicated UTI (urinary tract infection) N39.0
[2025-06-27 08:19] LABS: Hemoglobin A1C 6.3 % (4.5-5.6)
--- NOTE | 2025-06-27 09:20 | Hospitalist Progress Note ---
Date of Service June 27, 2025 Assessment & Plan (1) Sepsis: (2) Complicated UTI (urinary tract infection): (3) Obstructive nephropathy: Plan Patient is a 54-year-old female with past medical history significant for DMII, history of kidney stones, HLD, HTN and anxiety/depression who presented to the ED with complaints of R-sided flank pain, fevers and nausea. Found to be septic 2/2 complicated UTI ISO obstructing R distal ureteral calculus with moderate hydroureteronephrosis. CTAP: Delayed right-sided nephrogram with moderate hydroureteronephrosis and mild urothelial thickening secondary to an obstructing 5 x 4 x 5 mm calculus of the distal right ureter approximately 2 cm upstream to the UVJ. Bladder wall thickening with partial distention. Sepsis Complicated UTI Obstructive uropathy --CT ABD: Obstructing 5 mm distal right ureteral calculus results in moderate hydroureteronephrosis with delayed nephrogram. Mild urothelial thickening of the right ureter is likely reactive. Correlate with urinalysis to exclude infection.. Nonobstructing bilateral nephrolithiasis. Cholecystectomy. -- Blood cultures pending -- Urine culture: Preliminary growing Klebsiella, E. coli --Was initially started on Macrobid and then switched to cefpodoxime by PCP.. Patient did not start taking cefpodoxime. Continue IV fluids, cefepime Continue tamsulosin Pain control as needed Appreciate urology input Plan for cystoscopy with ureteral right ureteral stent placement today Acute kidney injury Unclear if patient has history of CKD Unknown baseline creatinine Creatinine 1.7 today Monitor renal function Avoid nephrotoxic agents as able DM type II HbA1c 6.3 Hold home metformin, Ozempic SSI regimen while inpatient, BSG checks ACHS Abnormal CT scan: 1)Incidental CTAP finding: atherosclerosis of the aorta without aneurysm Recommend further follow-up as an outpatient with PCP, continue current statin therapy Need to consider increasing rosuvastatin dosing to high-dose therapy; will check a.m. lipid panel for further evaluation 2)Incidental CTAP finding: partially imaged 3cm asymmetry of the upper outer quadrant R breast with soft tissue density Discussed with pt; strong family history of breast CA including her paternal aunt, sister Need to coordinate with PCP in order to have US and/or mammogram completed MITZI Continue statin advised to discuss with, PCP for possibly initiating aspirin as outpatient Advised to follow-up with [facility] as outpatient for mammogram and further evaluation Patient understands and agrees with the plan Anxiety/depression Continue Zoloft, BuSpar HTN Blood pressure stable Resume valsartan as able Monitor blood pressure DVT Px: SCDs/TEDs for now Code Status: FULL CODE Disposition: Expected discharge home when stable Admission and Anticipated Discharge Date Admission Date: June 26, 2025 Subjective Patient is seen and examined at bedside States having right flank pain especially with movement/activity Otherwise no complaints Denies any chest pain, dyspnea, nausea, vomiting, dysuria, hematuria Plan for cystoscopy and ureteral stent placement today Review of Systems Review of Systems: All systems reviewed & are unremarkable except as noted in Subjective Physical Exam Physical Exam: Physical Exam: Vitals signs as noted above General Appearance:Moderately built and nourished, no apparent distress Head: normocephalic, Atraumatic Eyes: normal inspection, EOMI Neck: supple, Trachea midline Respiratory/Chest: Normal breath sounds, CTA, No accessory muscle use Cardiovascular: S1, S2, No murmur Abdomen/GI:Soft, R flank tender, Bowel sounds present Extremities/Musculoskeletal:normal inspection, no edema Neurologic/Psych:AAOX3, grossly no focal neurological deficits Skin: normal color, warm Results & Data Results & Data Vital Signs (Past 12 Hours) Vital Signs Temp Pulse Pulse Pulse Resp BP Pulse Ox 06/27/25 08:03 36.6 C 87 18 116/69 99 06/27/25 02:27 36.7 C 77 20 99/66 L 96 06/26/25 22:30 89 06/26/25 22:29 36.6 C 89 18 126/70 95 O2 Del Method 06/27/25 08:03 Room Air 06/27/25 02:27 Room Air 06/26/25 22:30 06/26/25 22:29 Room Air Laboratory Results Short CBC 06/26/25 06/27/25 Range/Units 13:54 05:45 WBC 13.93 H 10.88 H (4.8-10.8) K/ul Hgb 12.5 10.3 L (12.0-16.0) g/dl Hct 38.2 31.0 L (37.0-47.0) % Plt Count 191 176 (130-400) K/uL BMP 06/26/25 06/26/25 06/27/25 13:54 19:01 05:45 Sodium 134 L 138 Potassium TNP 4.0 4.6 Chloride 100 109 H Carbon Dioxide 24 21 BUN 22 23 Creatinine 1.64 H 1.72 H Glucose 117 H 103 H Calcium 9.8 8.9 Liver Function 06/26/25 06/26/25 Range/Units 13:54 19:01 Total Bilirubin 0.8 (0.2-1.0) mg/dl AST TNP 9 L ALT 8 (7-52) U/L Alkaline Phosphatase 67 (34-104) U/L Albumin 4.3 (3.4-5.0) gm/dl Urine 06/26/25 Range/Units Unknown Urine Color Yellow Urine Appearance Cloudy A (Clear) Urine pH 5.5 (4.5-7.5) Ur Specific [place] 1.014 (1.000-1.030) Urine Protein 1+ H (Negative) Urine Glucose (UA) Negative (Negative) (1) Sepsis Sepsis acute organ dysfunction status: unspecified Sepsis type: sepsis due to unspecified organism Qualified Code(s): A41.9 - Sepsis, unspecified organism
[2025-06-27] MEDS ORDERED: ATROPINE SULFATE 0.1 MG/ML 10ML SYR IV PRN (13:57)
[2025-06-27] MEDS ORDERED: ONDANSETRON INJ 2 MG/ML 2 ML VIAL IV PRN (13:57)
--- NOTE | 2025-06-27 13:59 | Anesthesiology Consultation ---
Date of Service June 27, 2025 Assessment & Plan Chart Review Chart Review: Acceptable Risk for Surgery and Patient NOT seen in Pre Admission Testing Consults Requested none ASA ASA2 Proposed Anesthesia Anesthesia Type: MAC Risk / Benefits Reviewed With: PT / POA / Parent / Guardian, Accepts Plan and Informed Consent Obtained History Surgery Operation Date: 06/27/25 09:30 Proposed Procedures p Cystoscopy, Right Stent Placement - Jacobo Atkinson MD Height/Weight Height: 4 ft 11 in Weight: 66.7 kg Allergies Allergy/AdvReac Type Severity Reaction Status Date / Time ciprofloxacin Allergy Intermediate Hives Verified 06/26/25 16:58 sulfamethoxazole Allergy Intermediate Hives Verified 06/26/25 16:58 [From Bactrim] trimethoprim [From Bactrim] Allergy Intermediate Hives Verified 06/26/25 16:58 Medications Home Medications Medication Instructions Recorded Confirmed Last Taken buspirone 7.5 mg tablet 7.5 mg PO BID 06/26/25 06/26/25 Unknown cefpodoxime 200 mg tablet 200 mg PO BID 06/26/25 06/26/25 Unknown cholecalciferol (vitamin D3) 125 250 mcg PO DAILY 06/26/25 06/26/25 Unknown mcg (5,000 unit) tablet (Vitamin D3) metformin 1,000 mg tablet 1,000 mg PO BID 06/26/25 06/26/25 Unknown ondansetron 4 mg disintegrating 4 mg PO TID PRN NAUSEA/VOMITING 06/26/25 06/26/25 Unknown tablet rosuvastatin 5 mg tablet 5 mg PO DAILY 06/26/25 06/26/25 Unknown semaglutide 0.25 mg or 0.5 mg (2 0.5 mg subcut WK 06/26/25 06/26/25 06/21/25 mg/3 mL) subcutaneous pen injector (Ozempic) sertraline 100 mg tablet 100 mg PO DAILY 06/26/25 06/26/25 Unknown sertraline 50 mg tablet 50 mg PO DAILY 06/26/25 06/26/25 Unknown tamsulosin 0.4 mg capsule (Flomax) 0.4 mg PO DAILY 06/26/25 06/26/25 Unknown valsartan 160 mg tablet 160 mg PO DAILY 06/26/25 06/26/25 Unknown Active Medications Generic Name Dose Route Start Last Admin Trade Name Freq PRN Reason Stop Dose Admin Acetaminophen 1,000 mg 06/27/25 01:00 06/27/25 08:04 Acetaminophen 500 Mg Tab PO 07/27/25 00:59 1,000 mg Q8H SOFIA Administration Buspirone HCl 7.5 mg 06/26/25 21:00 06/27/25 08:06 Buspirone 7.5 Mg Tab PO 07/26/25 20:59 7.5 mg BID SOFIA Administration Cefepime HCl 2,000 mg in 20 mls @ 5 mls/min 06/26/25 19:30 06/27/25 08:01 Maxipime 2000mg IV 07/06/25 19:29 5 mls/min Q12H SOFIA Administration Protocol Sodium Chloride 1,000 mls @ 100 mls/hr 06/27/25 07:45 06/27/25 08:03 Nss IV 06/27/25 17:44 100 mls/hr .Q10H SOIFA Administration Insulin Aspart 0 units 06/27/25 00:00 06/27/25 13:50 Insulin Aspart Per Unit Charge SC 07/27/25 00:00 Not Given Q6 SOFIA Morphine Sulfate 4 mg 06/26/25 20:35 06/26/25 20:41 Morphine Sulfate 2 Mg/Ml Carp IV 07/10/25 18:20 4 mg Q4H PRN Administration Mod-Sev Pain (Scale 4-10) Rosuvastatin Calcium 5 mg 06/27/25 09:00 06/27/25 08:06 Rosuvastatin Calcium 5 Mg Tab PO 07/27/25 08:59 5 mg DAILY SOFIA Administration Sertraline HCl 100 mg 06/27/25 09:00 06/27/25 08:06 Sertraline Hcl 100 Mg Tablet PO 07/27/25 08:59 100 mg DAILY SOFIA Administration Sertraline HCl 50 mg 06/27/25 09:00 06/27/25 08:06 Sertraline Hcl 50 Mg Tablet PO 07/27/25 08:59 50 mg DAILY SOFIA Administration Tamsulosin HCl 0.4 mg 06/27/25 09:00 06/27/25 08:06 Tamsulosin Hcl 0.4 Mg Cap PO 07/27/25 08:59 0.4 mg DAILY SOFIA Administration Vitamin D 250 mcg 06/27/25 09:00 06/27/25 08:06 Cholecalciferol 125 Mcg (5,000 Units) Tab PO 07/27/25 08:59 250 mcg DAILY SOFIA Administration NPO Date Last Intake of Fluids: 06/26/25 Time Last Intake of Fluids: 18:00 Date Last Intake of Solids: 06/26/25 Time Last Intake of Solids: 18:00 Exercise / Class Metabolic Activity II 4-5 Yardwork/Stairs/Walk up hill Past Anesthesia History No Hx of Anesthesia Complications and No Family Hx of Anesthesia Complications History of PONV No Hx of PONV and No Hx of Motion Sickness Social History Smoking Status: Never smoker Hx Alcohol Use: Yes Alcohol type: wine and hard liquor alcohol intake frequency: holidays/special occasions only Hx Substance Use: No Review of Systems ROS Unobtainable: All systems reviewed & are unremarkable except as noted in HPI & below Physical Exam Vital Signs Last Vital Signs Temp 37 C 06/27/25 13:42 Pulse 91 H 06/27/25 13:42 Resp 18 06/27/25 13:42 BP 126/72 06/27/25 13:42 Pulse Ox 99 06/27/25 13:42 O2 Del Method Room Air 06/27/25 13:42 ENMT Mouth: no TMJ abnormality Thyromental Distance: > or= 3.5 Finger Breadths Mallampati Class: II Neck normal visual inspection and trachea midline; neck extension not limited Respiratory normal respiratory effort Auscultation: lungs clear to auscultation bilaterally Cardiovascular Rate/Rhythm: regular rate and regular rhythm Heart Sounds: no murmur Musculoskeletal Spine: normal cervical ROM Extremities: full ROM of extremities Neurologic moves all extremities Psychiatric Orientation: alert and oriented x 3 Testing Laboratory Results 06/27/25 05:45 06/27/25 05:45 Hemoglobin A1c 6.3 % (4.5-5.6) H 06/27/25 05:45 Urine Color Yellow 06/26/25 Unknown Urine Appearance Cloudy (Clear) A 06/26/25 Unknown Urine pH 5.5 (4.5-7.5) 06/26/25 Unknown Ur Specific [place] 1.014 (1.000-1.030) 06/26/25 Unknown Urine Protein 1+ (Negative) H 06/26/25 Unknown Urine Glucose (UA) Negative (Negative) 06/26/25 Unknown Urine Ketones 1+ (Negative) H 06/26/25 Unknown Urine Nitrite Positive (Negative) A 06/26/25 Unknown Ur Leukocyte Esterase 2+ (Negative) H 06/26/25 Unknown Urine WBC (Auto) 21-50 /hpf (0-5) H 06/26/25 Unknown Urine RBC (Auto) 6-10 /hpf (0-2) H 06/26/25 Unknown U Hyaline Cast (Auto) 6-10 /lpf (0-2) H 06/26/25 Unknown U Epithel Cells (Auto) 6-10 /hpf (0-2) H 06/26/25 Unknown Urine Bacteria (Auto) 4+ (None Seen) H 06/26/25 Unknown 06/26/25 Unknown Urine Culture - Preliminary Urine,Clean Catch Klebsiella pneumoniae Escherichia coli 06/27/25 06/27/25 06/27/25 13:47 11:42 05:52 POC Glucose 84 96 101 H
[2025-06-27] MEDS ORDERED: MIDAZOLAM HCL 1 MG/ML 2ML VIAL ONE (14:08)
[2025-06-27] MEDS ORDERED: PROPOFOL IV EMULSION 10 MG/ML 20 ML VIAL IV ONE (14:09)
[2025-06-27] MEDS ORDERED: ONDANSETRON INJ 2 MG/ML 2 ML VIAL ONE (14:09)
[2025-06-27] MEDS ORDERED: LIDOCAINE 2% 2 ML VIAL/AMP(20MG/ML) INFIL ONE ×2 (14:09)
[2025-06-27] MEDS: DIATRIZOATE MEGLUMINE 30% 100ML VIAL INSTIL PRN (15:03)
--- NOTE | 2025-06-27 15:07 | Operative Report ---
PG Post Operative Report Pre & Post Diagnosis Operation Date: 06/27/25 09:30 Pre-Op Diagnosis: right kidney stone Post-Op Diagnosis: right kidney stone I identified the patient and participated in the time-out.: Yes Procedure Operation Date: 06/27/25 09:30 Actual Procedures p Cystoscopy right retrograde pyelogram, Right Stent Placement(Right) - Jacobo Atkinson MD Surgeon Jacobo Atkinson MD Bicycle Technician None Estimated Blood Loss 0 Findings Consistent with Post-Op Diagnosis Specimens None Drains 6 Kenyan x 24 cm double-J ureteral stent in the right ureter Anesthesia Type MAC Complications none Disposition Accompanied Patient To Recovery: Yes Disposition: Recovery Room Indications This is a 54-year-old female recently found to have a right ureteral stone. She is brought to the OR for right ureteral stent placement to allow maximal drainage of her kidney. Description of Procedure The patient was identified in the holding area and informed consent was confirmed. She was marked on the right side, then was taken to the operating room where anesthesia was initiated. She was placed in the dorsal lithotomy position with all pressure points appropriately padded. She was prepped and draped in the usual sterile fashion and a preoperative timeout was performed. A well-lubricated cystoscope was inserted per urethra and panendoscopy was performed. The urethra was normal in appearance. The bladder was of normal size with ureteral orifices in orthotopic position. The right ureteral orifice was identified and cannulated with a 5 Kenyan open- ended catheter. A retrograde pyelogram was performed demonstrating some dilation of the right ureter. A 0.038" ZIPwire was advanced to the level of the kidney under fluoroscopic guidance. Over the wire, a 6 Kenyan x 24 centimeter double-J ureteral stent was advanced. When the wire was removed, the proximal curl was visualized in the kidney with x-ray, and the distal curl visualized in the bladder with the cystoscope. At this point the bladder was drained and all instrumentation was removed. The patient was then awakened from anesthesia and was brought to the PACU in stable condition. I attest to the content of the Intraoperative Record and any orders documented therein. Any exceptions are noted below.
--- NOTE | 2025-06-27 15:31 | Fluoroscopy Report ---
FL retrograde includes kub CLINICAL HISTORY: RIGHT COMPARISON STUDY: None FLUOROSCOPY TIME: 6 seconds FLUOROSCOPY IMAGES: 3 EXPOSURE DOSE: 1 mGy FINDINGS: Fluoroscopy was provided for urologic procedure. IMPRESSION: Intraoperative fluoroscopy. ACT 112: Negative or not required by law. Electronically signed by: Angel Candelario M.D. 06/27/2025 3:30 PM
--- NOTE | 2025-06-27 15:46 | Anesthesiology Progress Note ---
Date of Service June 27, 2025 Anesthesia Post Procedure Vital Signs Vital Signs: Temp Pulse Pulse Pulse Resp BP BP 06/27/25 15:20 80 17 06/27/25 15:12 37.4 C 78 17 06/27/25 15:07 80 06/27/25 13:42 37 C 91 H 18 126/72 06/27/25 11:34 36.7 C 78 18 117/76 06/27/25 08:23 77 06/27/25 08:03 36.6 C 87 18 116/69 06/27/25 02:27 36.7 C 77 20 99/66 L 06/26/25 22:30 89 06/26/25 22:29 36.6 C 89 18 126/70 06/26/25 20:00 06/26/25 19:15 37.4 C 109 H 18 134/82 06/26/25 19:00 107 H 06/26/25 18:15 37.2 C 93 H 18 133/78 06/26/25 17:59 68 133/83 06/26/25 17:35 100 H 14 174/102 H 06/26/25 16:00 94 H 20 147/70 H BP Pulse Ox O2 Del Method 06/27/25 15:20 115/65 95 Room Air 06/27/25 15:12 116/70 100 Room Air 06/27/25 15:07 06/27/25 13:42 99 Room Air 06/27/25 11:34 96 Room Air 06/27/25 08:23 06/27/25 08:03 99 Room Air 06/27/25 02:27 96 Room Air 06/26/25 22:30 06/26/25 22:29 95 Room Air 06/26/25 20:00 Room Air 06/26/25 19:15 96 Room Air 06/26/25 19:00 06/26/25 18:15 97 Room Air 06/26/25 17:59 06/26/25 17:35 97 Room Air 06/26/25 16:00 96 Pain Intensity Right Flank: Pain Intensity: 2 Head: Pain Intensity: 2 Transfer of Care Handoff Completed per policy Notes Mental Status: alert / awake / arousable Patient Amnestic to Procedure: Yes Nausea / Vomiting: adequately controlled Pain: adequately controlled Airway Patency, RR, SpO2: stable & adequate BP & HR: stable & adequate Hydration State: stable & adequate Anesthetic Complications: no major complications apparent
[2025-06-27] MEDS: MAGNESIUM CHLORIDE W/CALCIUM 64MG DELAYED REL TAB PO SCH (20:20)
[2025-06-28 06:17] LABS: Hematocrit (blood only) 30.3 % (37.0-47.0); Hemoglobin 9.8 g/dl (12.0-16.0); Mean Corpuscular Hemoglobin 27.5 pg (25.0-34.0); Mean Corpuscular Volume 85.1 fL (80.0-100.0); Platelet Count 199 K/uL (130-400); RDW Standard Deviation 40.4 fL (36.4-46.3); Red Blood Count 3.56 M/uL (4.20-5.40); White Blood Count 8.67 K/ul (4.8-10.8)
[2025-06-28 06:32] LABS: Anion Gap 5.0 (3-11); Blood Urea Nitrogen 21.0 mg/dl (6-23); Calcium 9.1 mg/dl (8.6-10.3); Carbon Dioxide 24.0 mmol/L (21-32); Chloride 110.0 mmol/L (98-107); Creatinine Clr Calc Pharmacy 35.8 ml/min; Glucose 120.0 mg/dl (70-99(Fasting)); Magnesium 1.6 mg/dl (1.7-2.4); Potassium 4.2 mmol/L (3.5-5.1); Sodium 139.0 mmol/L (136-145)
--- NOTE | 2025-06-28 08:52 | Urology Progress Note ---
Date of Service June 28, 2025 Assessment & Plan (1) Hydronephrosis with urinary obstruction due to ureteral calculus: Plan: - Pt POD#1 s/p cystoscopy and right ureteral stent placement - Doing well, progressing as expected - Afebrile with stable vitals - Lab work reviewed - creatinine 1.48, WBC 8.67 - Urine culture prelim with E. coli and Klebsiella - Continue broad spectrum antibiotics and narrow per sensitivity data when available - Tolerating right ureteral stent with minimal bother - Okay to d/c from perspective when medically stable - Recommend d/c with course of PO antibiotics per culture, Tamsulosin, prn Pyridium and prn pain medication for stent management - Expected clinical course reviewed, all questions answered - Will arrange outpatient follow-up with our service - will sign off, contact our service with any additional questions or concerns Admission and Anticipated Discharge Date Admission Date: June 26, 2025 Subjective Patient seen and examined at bedside this morning. She is awake and resting in bed. No acute issues overnight. Feeling much better today. Tolerating stent. Voiding without difficulty. No fever or chills. Review of Systems Constitutional: as per Subjective / HPI Genitourinary: as per Subjective / HPI Physical Exam Constitutional: well developed and well nourished; no acute distress Respiratory: normal respiratory effort; no respiratory distress and no labored breathing Gastrointestinal (Abdomen): Inspection/Auscultation: abdomen normal to inspection Musculoskeletal: Head/Neck/Chest: normocephalic Neurologic: moves all extremities and awake Psychiatric: Orientation: alert and oriented x 3 Results & Data Vital Signs (Past 12 Hours) Vital Signs Temp Pulse Pulse Resp BP Pulse Ox O2 Del Method 06/28/25 08:35 84 06/28/25 07:27 36.6 C 83 16 130/74 98 Room Air 06/28/25 03:17 36.8 C 73 17 111/69 97 Room Air 06/27/25 23:07 37.0 C 82 18 115/69 96 Room Air 06/27/25 22:58 88 06/27/25 21:29 Room Air PG Care Time/CCT Total # of Minutes Spent Total Time Spent with Patient: Total time spent is greater than 50% in coordination of care (as documented) at patient's floor/unit and/or counseling patient: Coding Level of Care Code 84986 SUB INP/OBS CARE 1/25MIN Diagnoses Hydronephrosis with urinary obstruction due to ureteral calculus N13.2
[2025-06-28] MEDS: MAGNESIUM SULFATE / D5W 1 GM/100 ML BAG IV ONE (09:15)
--- NOTE | 2025-06-28 09:43 | Pharmacy Report ---
Pharmacy Glycemic Short Note 2 - Date of Service June 28, 2025 - Glycemic Short BSG Results (Last 24 hours): 06/27/25 06/27/25 06/27/25 11:42 13:47 15:21 Glucose POC Glucose 96 84 97 06/27/25 06/28/25 06/28/25 20:07 05:26 07:30 Glucose 120 H POC Glucose 131 H 116 H OUTPATIENT ANTIDIABETIC REGIMEN: * Metformin 1000g BID * Semaglutide 0.5mg SQ weekly HbA1c: 6.3% on 06/27/25 ASSESSMENT: * Zaida only required 3 units of insulin yesterday (all were bolus). BSGs were 625-89-90-131mg/dL. * Fasting BSG was 116mg/dL. Loosened carb ratio this morning to prevent hypoglycemia * No basal insulin needed at this time. 06/26: * Patient is a 54 year old female with T2DM who presents with sepsis likely secondary to urinary source. * Glucose reading this afternoon was 117, controlled. * Patient will be NPO at midnight for stent placement tomorrow, but currently ordered T2DM diet. * Will initiate Novolog weight-based regimen with stress of 2 for now. ACHS checks until midnight, then Q6H starting 10 0000 for NPO. * Stressors: infection, surgical procedure tomorrow. PLAN FOR INPATIENT GLYCEMIC CONTROL: * Hold outpatient diabetes medications * Bolus insulin * NovoLog per scale ACHS or Q6hrs while NPO * Goal Range: Low 120 mg/dL - High 160 mg/dL * Correction Factor: 35 mg/dL/unit * Nutritional / Prandial insulin per carb ratio of 1 unit per 20 grams CHO consumed
[2025-06-28 11:24] VITALS: RESP 20; TEMP 98.8; O2SAT 96
[2025-06-28] MEDS ORDERED: PHENAZOPYRIDINE HCL 100 MG TAB PO PRN (11:37)
--- NOTE | 2025-06-28 11:40 | Hospitalist Progress Note ---
Date of Service June 28, 2025 Assessment & Plan (1) Sepsis: (2) Complicated UTI (urinary tract infection): (3) Obstructive nephropathy: Plan Patient is a 54-year-old female with past medical history significant for DMII, history of kidney stones, HLD, HTN and anxiety/depression who presented to the ED with complaints of R-sided flank pain, fevers and nausea. Found to be septic 2/2 complicated UTI ISO obstructing R distal ureteral calculus with moderate hydroureteronephrosis. CTAP: Delayed right-sided nephrogram with moderate hydroureteronephrosis and mild urothelial thickening secondary to an obstructing 5 x 4 x 5 mm calculus of the distal right ureter approximately 2 cm upstream to the UVJ. Bladder wall thickening with partial distention. Sepsis Complicated UTI Obstructive uropathy --CT ABD: Obstructing 5 mm distal right ureteral calculus results in moderate hydroureteronephrosis with delayed nephrogram. Mild urothelial thickening of the right ureter is likely reactive. Correlate with urinalysis to exclude infection.. Nonobstructing bilateral nephrolithiasis. Cholecystectomy. --S/P Cystoscopy right retrograde pyelogram, Right Stent Placement by on 06/27/25 -- Blood cultures: Negative to date -- Urine culture: grew Klebsiella, E. coli --Was initially started on Macrobid and then switched to cefpodoxime by PCP.. Patient did not start taking cefpodoxime. Continue IV fluids, cefepime>> transition to oral antibiotics to complete the course Continue tamsulosin Pain control as needed Appreciate urology input Needs follow-up with urology for definitive stone treatment Plan to discharge home today Acute kidney injury Unclear if patient has history of CKD Unknown baseline creatinine Creatinine 1.7>>1.4 Monitor renal function Avoid nephrotoxic agents as able DM type II HbA1c 6.3 Hold home metformin, Ozempic SSI regimen while inpatient, BSG checks ACHS Abnormal CT scan: 1)Incidental CTAP finding: atherosclerosis of the aorta without aneurysm Recommend further follow-up as an outpatient with PCP, continue current statin therapy Need to consider increasing rosuvastatin dosing to high-dose therapy; will check a.m. lipid panel for further evaluation 2)Incidental CTAP finding: partially imaged 3cm asymmetry of the upper outer quadrant R breast with soft tissue density Discussed with pt; strong family history of breast CA including her paternal aunt, sister Need to coordinate with PCP in order to have US and/or mammogram completed MITZI Continue statin advised to discuss with, PCP for possibly initiating aspirin as outpatient Advised to follow-up with [facility]PER[facility] as outpatient for mammogram and further evaluation Patient understands and agrees with the plan Anxiety/depression Continue Zoloft, BuSpar HTN Blood pressure stable Resume valsartan as able Monitor blood pressure DVT Px: SCDs/TEDs for now Code Status: FULL CODE Disposition: Home Admission and Anticipated Discharge Date Admission Date: June 26, 2025 Subjective Patient is seen and examined at bedside States feeling much better today Flank pain improved Tolerating ureteral stent Offers no other complaints Plan to be discharged home today Review of Systems Review of Systems: All systems reviewed & are unremarkable except as noted in Subjective Physical Exam Physical Exam: Physical Exam: Vitals signs as noted above General Appearance:Moderately built and nourished, no apparent distress Head: normocephalic, Atraumatic Eyes: normal inspection, EOMI Neck: supple, Trachea midline Respiratory/Chest: Normal breath sounds, CTA, No accessory muscle use Cardiovascular: S1, S2, No murmur Abdomen/GI:Soft, non tender, Bowel sounds present Extremities/Musculoskeletal:normal inspection, no edema Neurologic/Psych:AAOX3, grossly no focal neurological deficits Skin: normal color, warm Results & Data Results & Data Vital Signs (Past 12 Hours) Vital Signs Temp Pulse Pulse Resp BP Pulse Ox O2 Del Method 06/28/25 11:23 37.1 C 79 20 106/58 L 96 Room Air 06/28/25 08:35 84 06/28/25 07:27 36.6 C 83 16 130/74 98 Room Air 06/28/25 03:17 36.8 C 73 17 111/69 97 Room Air Laboratory Results Short CBC 06/28/25 Range/Units 05:26 WBC 8.67 (4.8-10.8) K/ul Hgb 9.8 L (12.0-16.0) g/dl Hct 30.3 L (37.0-47.0) % Plt Count 199 (130-400) K/uL BMP 06/28/25 05:26 Sodium 139 Potassium 4.2 Chloride 110 H Carbon Dioxide 24 BUN 21 Creatinine 1.48 H Glucose 120 H Calcium 9.1 (1) Sepsis Sepsis type: sepsis due to unspecified organism Sepsis acute organ dysfunction status: unspecified Qualified Code(s): A41.9 - Sepsis, unspecified organism
--- NOTE | 2025-06-28 12:10 | Discharge Summary ---
Date of Service June 28, 2025 Admission HPI Per Admitting Provider Patient is a 54-year-old female with past medical history significant for DMII, history of kidney stones, HLD, HTN and anxiety/depression who presented to the ED with complaints of R-sided flank pain, fevers and nausea. History obtained from the patient, patient's family members at bedside (aunt and uncle), discussion with ED provider and associated chart review. Started with R-sided flank pain on Tuesday. Diagnosed with UTI on Tuesday. Was started on Macrobid. Was called by PCP earlier today and told that her urine culture was growing a bacteria with resistant to Macrobid. Unclear bacterium. Was switched to cefpodoxime. This was sent to her pharmacy but not picked up. Instead she decided to come into the ED as she continued to have significant R flank pain as well as nausea and fevers. Last recorded fever was yesterday and was 102.9F. Had chills associated with this. Appetite fairly poor ISO nausea. Has been taking in some fluids. No reported bouts of vomiting. No smoking history. Rare alcohol use. No recreational drug use. Significant history of kidney stones. Previously requiring stent placement. Last kidney stone was about a year and a half ago. Admission Exam Per Admitting Provider General: WD/WN, NAD, laying down in bed, A&Ox3, pleasant, family at bedside HEENT: Normocephalic, atraumatic, oropharynx normal Respiratory: Normal respiratory effort, CTAB Cardiovascular: Tachycardic rate (HR 107), regular rhythm, normal peripheral pulses, no BLE edema Abdomen/GI: Active bowel sounds, soft, + R flank pain otherwise nontender to palpation in all quadrants Extremities/Musculoskeletal: No cyanosis or clubbing, extremities motor strength intact, moves all extremities Neurologic: No overt focal deficits, CN's II-XI not formally tested but appear grossly intact bilaterally Principal Diagnosis Sepsis Complicated urinary tract infection Obstructive uropathy Acute kidney injury Abnormal CT scan Hypomagnesemia Discharge Data Allergies Allergy/AdvReac Type Severity Reaction Status Date / Time ciprofloxacin Allergy Intermediate Hives Verified 06/26/25 16:58 sulfamethoxazole Allergy Intermediate Hives Verified 06/26/25 16:58 [From Bactrim] trimethoprim [From Bactrim] Allergy Intermediate Hives Verified 06/26/25 16:58 Consultations 06/26/25 17:08 HIM [Consult Health Information Management] Stat 06/26/25 17:25 Consult Urology Routine 06/26/25 17:53 ED Decision to Admit Stat Procedures Performed Operation Date: 06/27/25 09:30 Actual Procedures p Cystoscopy, Right Stent Placement, Retrograde Pyelogram(Right) - Jacobo Atkinson MD Ordered Studies Laboratory Results WBC 8.67 K/ul (4.8-10.8) 06/28/25 05:26 RBC 3.56 M/uL (4.20-5.40) L 06/28/25 05:26 Hgb 9.8 g/dl (12.0-16.0) L 06/28/25 05:26 Hct 30.3 % (37.0-47.0) L 06/28/25 05:26 MCV 85.1 fL (80.0-100.0) 06/28/25 05:26 MCH 27.5 pg (25.0-34.0) 06/28/25 05:26 MCHC 32.3 g/dL (32.0-36.0) 06/28/25 05:26 RDW Std Deviation 40.4 fL (36.4-46.3) 06/28/25 05:26 RDW Coeff of Lisa 12.9 % (11.5-14.5) 06/28/25 05:26 Plt Count 199 K/uL (130-400) 06/28/25 05:26 MPV 10.1 fL (9.4-12.4) 06/28/25 05:26 Immature Gran % (Auto) 0.6 % 06/27/25 05:45 Neut % (Auto) 72.8 % 06/27/25 05:45 Lymph % (Auto) 17.5 % 06/27/25 05:45 Harney % (Auto) 6.4 % 06/27/25 05:45 Eos % (Auto) 2.4 % 06/27/25 05:45 Baso % (Auto) 0.3 % 06/27/25 05:45 Neut # (Auto) 7.93 K/uL (1.40-6.50) H 06/27/25 05:45 Lymph # (Auto) 1.90 K/uL (1.20-3.40) 06/27/25 05:45 Harney # (Auto) 0.70 K/uL (0.11-0.59) H 06/27/25 05:45 Eos # (Auto) 0.26 K/uL (0.00-0.50) 06/27/25 05:45 Baso # (Auto) 0.03 K/uL (0.00-0.20) 06/27/25 05:45 Immature Gran # (Auto) 0.06 K/uL (0.01-0.20) 06/27/25 05:45 Sodium 139 mmol/L (136-145) 06/28/25 05:26 Potassium 4.2 mmol/L (3.5-5.1) 06/28/25 05:26 Chloride 110 mmol/L (98-107) H 06/28/25 05:26 Carbon Dioxide 24 mmol/L (21-32) 06/28/25 05:26 Anion Gap 5 (3-11) 06/28/25 05:26 BUN 21 mg/dl (6-23) 06/28/25 05:26 Creatinine 1.48 mg/dl (0.6-1.2) H 06/28/25 05:26 Est Cr Clr Drug Dosing 35.8 ml/min 06/28/25 05:26 eGFR 41.56 06/28/25 05:26 BUN/Creatinine Ratio 14.2 (10-20) 06/28/25 05:26 Glucose 120 mg/dl (70-99(Fasting)) H 06/28/25 05:26 POC Glucose 146 mg/dl (70-99) H 06/28/25 11:38 Estimat Average Glucose 134 mg/dl 06/27/25 05:45 Hemoglobin A1c 6.3 % (4.5-5.6) H 06/27/25 05:45 Lactate 1.3 mmol/L (0.4-2.0) 06/26/25 07:53 Calcium 9.1 mg/dl (8.6-10.3) 06/28/25 05:26 Magnesium 1.6 mg/dl (1.7-2.4) L 06/28/25 05:26 Total Bilirubin 0.8 mg/dl (0.2-1.0) 06/26/25 13:54 AST 9 U/L (13-39) L 06/26/25 19:01 ALT 8 U/L (7-52) 06/26/25 13:54 Alkaline Phosphatase 67 U/L (34-104) 06/26/25 13:54 Troponin I High Sens 7.1 pg/ml (0-14) 06/26/25 13:54 Total Protein 7.9 gm/dl (6.0-8.3) 06/26/25 13:54 Albumin 4.3 gm/dl (3.4-5.0) 06/26/25 13:54 Globulin 3.6 gm/dl (2.5-4.0) 06/26/25 13:54 Albumin/Globulin Ratio 1.2 (0.9-2) 06/26/25 13:54 Triglycerides 98 mg/dl (0-150) 06/27/25 05:45 Cholesterol 119 mg/dl (0-200) 06/27/25 05:45 LDL Cholesterol, Calc 59 mg/dl 06/27/25 05:45 VLDL Cholesterol, Calc 20 mg/dl (0-30) 06/27/25 05:45 HDL Cholesterol 40 mg/dl 06/27/25 05:45 Cholesterol/HDL Ratio 3.0 (0-5) 06/27/25 05:45 Procalcitonin 1.45 ng/ml (0-0.5) H 06/26/25 19:01 Urine Color Yellow 06/26/25 Unknown Urine Appearance Cloudy (Clear) A 06/26/25 Unknown Urine pH 5.5 (4.5-7.5) 06/26/25 Unknown Ur Specific Arma 1.014 (1.000-1.030) 06/26/25 Unknown Urine Protein 1+ (Negative) H 06/26/25 Unknown Urine Glucose (UA) Negative (Negative) 06/26/25 Unknown Urine Ketones 1+ (Negative) H 06/26/25 Unknown Urine Blood 1+ (Negative) H 06/26/25 Unknown Urine Nitrite Positive (Negative) A 06/26/25 Unknown Urine Bilirubin Negative (Negative) 06/26/25 Unknown Urine Urobilinogen Negative (Negative) 06/26/25 Unknown Ur Leukocyte Esterase 2+ (Negative) H 06/26/25 Unknown Urine WBC (Auto) 21-50 /hpf (0-5) H 06/26/25 Unknown Urine RBC (Auto) 6-10 /hpf (0-2) H 06/26/25 Unknown U Hyaline Cast (Auto) 6-10 /lpf (0-2) H 06/26/25 Unknown U Epithel Cells (Auto) 6-10 /hpf (0-2) H 06/26/25 Unknown Urine Bacteria (Auto) 4+ (None Seen) H 06/26/25 Unknown Urine Comment 06/26/25 Unknown Impressions Abdomen/Pelvis CT 06/26/25 13:[address] WITH IV CONTRAST CT DOSE: 790.76 mGy.cm HISTORY: Acute right-sided flank pain with renal colic right flank/groin pain, hx renal calc TECHNIQUE: Multiaxial CT images of the abdomen and pelvis were performed following the IV administration of 90 cc of Optiray, A dose lowering technique was utilized adhering to the principles of ALARA. COMPARISON STUDY: None. FINDINGS: Partially imaged 3 cm asymmetry of the upper outer quadrant right breast on image 1 series 3 with soft tissue density. Trace pleural effusions with mild dependent subsegmental bibasilar atelectasis. No pneumatosis or pneumoperitoneum. Spleen is upper limits of normal in size, 12 cm. Unremarkable spleen and adrenal glands. Cholecystectomy. Unremarkable liver. Patency of the hepatic and portal veins. 8 mm nonobstructing calculus of the inferior pole left kidney. Nonobstructing calculi at the inferior pole right kidney measure up to 4 mm. Small right renal cyst. Delayed right-sided nephrogram with moderate hydroureteronephrosis and mild urothelial thickening secondary to an obstructing 5 x 4 x 5 mm calculus of the distal right ureter approximately 2 cm upstream to the UVJ. Bladder wall thickening with partial distention. Atherosclerosis of the aorta without aneurysm. No lymphadenopathy. Small duodenal diverticulum. No bowel obstruction or bowel wall thickening. Unremarkable soft tissues. There is no acute fracture identified. IMPRESSION: 1. Obstructing 5 mm distal right ureteral calculus results in moderate hydroureteronephrosis with delayed nephrogram. 2. Mild urothelial thickening of the right ureter is likely reactive. Correlate with urinalysis to exclude infection. 3. Nonobstructing bilateral nephrolithiasis. 4. Cholecystectomy. ACT 112: Negative or not required by law. The above report was generated using voice recognition software. It may contain grammatical, syntax or spelling errors. Electronically signed by: Dave Gonzalez M.D. 06/26/2025 3:[address] 06/26/25 20:38 Exam(s): CT HEAD Without Contrast EXAM: CT Head Without Intravenous Contrast CLINICAL HISTORY: Reason for exam: elizalde. TECHNIQUE: Axial computed tomography images of the head/brain without intravenous contrast. CTDI is 38.37 mGy and DLP is 547.75 mGy-cm. Automated exposure control was utilized for the study. A dose lowering technique was utilized adhering to the principles of ALARA. Mild motion artifact. COMPARISON: None. FINDINGS: Brain: No mass effect or acute infarct. No acute hemorrhage. No definite abnormal density in the brain parenchyma, mildly limited by motion artifact. Ventricles: No hydrocephalus or midline shift. Bones/joints: No skull fracture. Soft tissues: No scalp hematoma. Visualized Sinuses: Clear. Mastoid air cells: No mastoid effusion. IMPRESSION: 1. No acute intracranial abnormality. Electronically signed by: Veronica Galeana M.D. 06/26/25 23:11 PM Retrograde Pyelogram 06/27/25 00:00 FL retrograde includes kub CLINICAL HISTORY: RIGHT COMPARISON STUDY: None FLUOROSCOPY TIME: 6 seconds FLUOROSCOPY IMAGES: 3 EXPOSURE DOSE: 1 mGy FINDINGS: Fluoroscopy was provided for urologic procedure. IMPRESSION: Intraoperative fluoroscopy. ACT 112: Negative or not required by law. Electronically signed by: Angel Candelario M.D. 06/27/2025 3:30 PM Hospital Course (1) Sepsis: (2) Complicated UTI (urinary tract infection): (3) Obstructive nephropathy: Plan Patient is a 54-year-old female with past medical history significant for DMII, history of kidney stones, HLD, HTN and anxiety/depression who presented to the ED with complaints of R-sided flank pain, fevers and nausea. Found to be septic 2/2 complicated UTI ISO obstructing R distal ureteral calculus with moderate hydroureteronephrosis. CTAP: Delayed right-sided nephrogram with moderate hydroureteronephrosis and mild urothelial thickening secondary to an obstructing 5 x 4 x 5 mm calculus of the distal right ureter approximately 2 cm upstream to the UVJ. Bladder wall thickening with partial distention. Sepsis Complicated UTI Obstructive uropathy --CT ABD: Obstructing 5 mm distal right ureteral calculus results in moderate hydroureteronephrosis with delayed nephrogram. Mild urothelial thickening of the right ureter is likely reactive. Correlate with urinalysis to exclude infection.. Nonobstructing bilateral nephrolithiasis. Cholecystectomy. --S/P Cystoscopy right retrograde pyelogram, Right Stent Placement by on 06/27/25 -- Blood cultures: Negative to date -- Urine culture: grew Klebsiella, E. coli --Was initially started on Macrobid and then switched to cefpodoxime by PCP.. Patient did not start taking cefpodoxime. Continue IV fluids, cefepime>> transition to oral antibiotics to complete the course Continue tamsulosin Pain control as needed Appreciate urology input Needs follow-up with urology for definitive stone treatment Plan to discharge home today Acute kidney injury Unclear if patient has history of CKD Unknown baseline creatinine Creatinine 1.7>>1.4 Monitor renal function Avoid nephrotoxic agents as able DM type II HbA1c 6.3 Hold home metformin, Ozempic SSI regimen while inpatient, BSG checks ACHS Abnormal CT scan: 1)Incidental CTAP finding: atherosclerosis of the aorta without aneurysm Recommend further follow-up as an outpatient with PCP, continue current statin therapy Need to consider increasing rosuvastatin dosing to high-dose therapy; will check a.m. lipid panel for further evaluation 2)Incidental CTAP finding: partially imaged 3cm asymmetry of the upper outer quadrant R breast with soft tissue density Discussed with pt; strong family history of breast CA including her paternal aunt, sister Need to coordinate with PCP in order to have US and/or mammogram completed MITZI Continue statin advised to discuss with, PCP for possibly initiating aspirin as outpatient Advised to follow-up with [facility] as outpatient for mammogram and further evaluation Patient understands and agrees with the plan Anxiety/depression Continue Zoloft, BuSpar HTN Blood pressure stable Resume valsartan as able Monitor blood pressure DVT Px: SCDs/TEDs for now Code Status: FULL CODE Disposition: Home Total Time Total Time Spent Total Time Spent (In Minutes): 52 minutes Discharge Plan Discharge Items Patient Disposition: Home - Self-Care Reason For Visit: COMPLICATED UTI, OBSTRUCTIVE NEPHROPATHY Discharge Diagnosis: Sepsis Complicated urinary tract infection Obstructive uropathy Acute kidney injury Abnormal CT scan Hypomagnesemia Condition on Discharge: Good Activity: Per Instructions section Exercise/Sports: Gradually increase as tolerated Non-emergency contact: Primary Care Provider and Urologist Call non-emergency contact if: you have any medication questions, your symptoms worsen, your pain is concerning for you and you have a fever Follow-up/Referrals: Odilon Jensen D.O. [Primary Care Provider] - 07/11/25 9:00 am Diet: Carb Consistent or DM2 and Heart Healthy Addtl Attending Provider Instructions: -- Follow-up with your primary care physician on 07/11/25 at 9:00 am as scheduled -- Follow-up with your urologist Dr. Atkinson as recommended --Your final blood cultures are pending at the time of discharge. Follow-up with your physician for results. --Complete the antibiotic course Keflex as prescribed -- Hold taking valsartan for now given low blood pressure and increased creatinine levels while you are hospitalized. Obtain a blood test (basic metabolic panel) in 1 week and follow-up with your physician for further instructions for any medication adjustments. You may also need adjustment of your metformin dose based on your renal function. --You are incidentally noted to have atherosclerosis of the aorta and asymmetry of the upper outer quadrant right breast with soft tissue density on CT scan. Follow-up with your primary care physician for further instructions and management. -- Increase oral fluid intake as recommended by your urologist. Seek immediate medical attention if your symptoms reoccur or worsen Please review medication list provided on discharge for any medication changes as instructed. Please call if you have any questions or problems. You can reach a [facility] hospitalist on duty at [facility] 24 hours a day by calling [phone] Pending Studies at Discharge: Yes Studies:: Blood cultures Stand-Alone Forms: My [facility], Smoking Cessation Medications and DC Order Prescriptions: New cephalexin 500 mg Capsule 500 mg PO QID 8 Days Qty: 32 0RF magnesium chloride [Mag 64] 64 mg Tablet,Delayed Release (Dr/Ec) 64 mg PO BID Qty: 30 0RF Advanced Probiotic 625 mg (10 billion cell) Capsule 1 cap PO DAILY Qty: 10 0RF phenazopyridine [Pyridium] 100 mg Tablet 100 mg PO TID PRN (Reason: pain) Qty: 30 0RF Continued sertraline 100 mg tablet 100 mg PO DAILY Rx Instructions: TOTAL DOSE 150 MG--TAKES WITH 50 MG TAB. tamsulosin [Flomax] 0.4 mg capsule 0.4 mg PO DAILY metformin 1,000 mg tablet 1,000 mg PO BID buspirone 7.5 mg tablet 7.5 mg PO BID ondansetron 4 mg tablet,disintegrating 4 mg PO TID PRN (Reason: NAUSEA/VOMITING) sertraline 50 mg tablet 50 mg PO DAILY Rx Instructions: TOTAL DOSE 150 MG--TAKES WITH 100 MG TAB. rosuvastatin 5 mg tablet 5 mg PO DAILY cholecalciferol (vitamin D3) [Vitamin D3] 125 mcg (5,000 unit) Tablet 250 mcg PO DAILY Ozempic 0.25 mg or 0.5 mg (2 mg/3 mL) pen injector 0.5 mg SUBCUT WK Rx Instructions: FRIDAYS Held valsartan 160 mg tablet 160 mg PO DAILY Hold Instructions: Hold taking it until further recommendations from your primary care physician on follow-up visit. Discontinued cefpodoxime 200 mg tablet 200 mg PO BID Rx Instructions: PER PT "HAVE NOT PICKED UP FROM THE PHARMACY YET" Discharge Orders: Discharge Order (Routine); Ordered 06/28/25 Ordered By: Khurram Reddy/Other Patient Handouts: Managing Type 2 Diabetes Admission Data Admit Date/Time: 06/26/25 17:22 Attending Provider: Khurram Galvan Admit Provider: Blue Calzada Primary Care Provider: Odilon Jensen Other Providers: Jacobo Atkinson; Blue Calzada
[2025-06-28 12:51] VITALS: BP 137/87; PULSE 98
[2025-06-29] MEDS ORDERED: ADVANCED PROBIOTIC 625 MG CAPSULE PO SCH (09:00)
== END 2025-06-28 15:14 | disposition home or self-care (01) | DRG 854 ==
LOC: ED 12:42 → 4W 17:22 → SUATTDRO 17:22 → 4W 17:59